=== PATIENT | female | born 1950 | race Caucasian/White ===

== ENCOUNTER 2023-08-25 16:57 | Emergency (ER) | payer MEDICARE, OTHER ==
[~2023-08-25] VITALS: Ht 157.5 cm; Wt 95.0 kg
[~2023-08-25 16:57] MED LIST: FENO1TAB41 PO; INSUINJ37 SUBCUT; LIS10T GT; METF-370 PO; PIO30T PO; VITADTP TOP
[2023-08-25 19:24] LABS: Urine Bacteria FEW /hpf (None Seen); Urine Blood Negative /uL (Negative); Urine Clarity HAZY (Clear); Urine Color Yellow (Yellow); Urine Protein, UAD 1+ (Negative); Urine Urobilinogen Normal (Negative); Urine WBC 1 /hpf (0 - 5)
[2023-08-25 20:38] VITALS: BP 107/54; PULSE 94; RESP 17; TEMP 97.6; O2SAT 98
[2023-08-25 21:29] LABS: COVID19 ANTIGEN SOFIA FIA NEGATIVE (NEGATIVE); Rapid Influenza A Negative (Negative); Rapid Influenza B Negative (Negative)
[2023-08-25] MEDS ORDERED: ZOFR4T PO (22:13)
[2023-08-25] MEDS ORDERED: LORA10CA PO (22:13)
[2023-08-25] MEDS ORDERED: ONDANSETRON ODT 4 MG TAB PO ONE (22:15)
== END 2023-08-25 22:31 | disposition home or self-care (01) ==
LOC: ER 16:57
DX: J06.9 Acute upper respiratory infection, unspecified (principal); E11.9 Type 2 diabetes mellitus without complications; E78.5 Hyperlipidemia, unspecified; I10 Essential (primary) hypertension; Z90.49 Acquired absence of other specified parts of digestive tract; Z87.442 Personal history of urinary calculi; Z20.822 Contact with and (suspected) exposure to COVID-19
CPT/HCPCS: 36415; 71046; 81001; 87426; 87804; 93005; 99285; Q0162